=== PATIENT | male | born 1955 | race Hispanic/Latino ===

== ENCOUNTER 2019-05-13 13:26 | Outpatient (CLI) | payer MEDICARE, MEDICAID ==
--- NOTE | 2019-05-13 14:49 | ULT ---
UPPER EXTREMITY VASCULAR MAPPING: HISTORY: End stage renal disease. Evaluate vascular structures of the upper extremities prior to dialysis acce ss surgery. TECHNIQUE: Multiplanar wood-scale sonographic imaging of the vascular structures of the bilateral upper extremit ies obtained with color-flow and spectral analysis as detailed above. FINDINGS: Bilateral internal jugular veins, subclavian veins and axillary veins are patent. The basilic vein an d cephalic vein is patent bilaterally as is the radial and ulnar vein. VESSEL DIAMETER (mm) Right brachial artery 4.7 Right radial artery 2.7 Right ulnar artery 2.0 Left brachial artery 5.2 Left radial artery 3.0 Left ulnar artery 1.6 RIGHT CEPHALIC VEIN BASILIC VEIN Above elbow proximal 1.6 3.0 Above elbow mid 1.3 3.4 Above elbow distal 1.0 3.5 At elbow 2.4 3.6 Below elbow proximal 0.7 1.6 Below elbow mid 0.9 1.5 Below elbow distal 1.8 1.6 LEFT CEPHALIC VEIN BASILIC VEIN Above elbow proximal 2.4 6.2 Above elbow mid 2.0 2.9 Above elbow distal 2.1 3.0 At elbow 2.9 4.3 Below elbow proximal 2.7 1.5 Below elbow mid 1.8 0.9 Below elbow distal 1.3 1.1 IMPRESSION: Upper extremity vascular mapping as detailed above. POS: [facility]
== END 2019-05-13 13:27 | disposition home or self-care (01) ==
LOC: BICULT 13:26
PROVIDERS: ATTEND Surgery
DX: Z99.2 Dependence on renal dialysis (principal)
CPT/HCPCS: 93970; G0365

== ENCOUNTER 2019-05-16 13:36 | Day surgery (SDC) | payer MEDICARE, MEDICAID ==
[2019-05-15 12:08] VITALS: BMI 26.4
[~2019-05-16 13:36] MED LIST: EPINEPHrine 0.3 MG, Dextrose 50% 3 ML in Ophthalmic Irrigation Solution 500 ML IVP SCH
[2019-05-16] MEDS ORDERED: Cyclopentolate 1% Opth Drop 2 ML BOT ONE (14:31)
[2019-05-16] MEDS ORDERED: Phenylephrine 2.5% Ophth Soln 5 ML BOT ONE (14:31)
[2019-05-16] MEDS ORDERED: Fentanyl 100 MCG/2 ML VIAL ONE (16:35)
[2019-05-16] MEDS ORDERED: Midazolam HCl 2 mg/2 ml Vial ONE (16:35)
[2019-05-16] MEDS ORDERED: Heparin 10,000 UNITS/ 10 ML VIAL ONE (17:45)
--- NOTE | 2019-05-16 18:26 | OP ---
DATE OF PROCEDURE: 05/16/2019 PRINCIPAL PREOPERATIVE DIAGNOSES: 1. Vitreous hemorrhage, left eye. 2. Proliferative diabetic retinopathy, left eye. ESTIMATED BLOOD LOSS: None. SPECIMENS REMOVED: None. COMPLICATIONS: None. ANESTHESIA: MAC with retrobulbar block. SUMMARY OF OPERATION: The patient was identified in preop holding area, where the correct eye being the left eye was marked for surgery. The patient was taken to the operating room, where MAC anesthesia was induced. A retrobulbar block was administered to the left eye. The block consisted of 1:1 ratio of 4% lidocaine and 0.75% Marcaine. A total of 5 mL was administered. The left eye was then prepped and draped in usual sterile ophthalmic fashion for surgery. A wire lid speculum was placed. A standard 25-gauge pars plana vitrectomy platform was fashioned with trocars placed approximately 4 mm from the limbus. The infusion was noted to be within the vitreous cavity prior to being turned on to infusion pressure of 30 mmHg. The light pipe Micro vitrector introduced into the eye under visualization of BIOM viewing system. A moderate vitreous hemorrhage was noted, obscuring view of the macula as well as an inferior fundus. A careful core and peripheral shave vitrectomy were performed, which allowed for improved clearance of the vitreous hemorrhage and improved it view of the retina. Following complete clearance of the vitreous hemorrhage, the endolaser was used by panretinal photocoagulation posterior to the preexisting laser. The cannulas were sequentially removed and all sclerotomies were noted to be watertight. The wire lid speculum was removed followed by application of TobraDex ophthalmic ointment and light patch and shield. The patient tolerated the procedure well and was taken to outpatient recovery in good condition. Job ID: [id number]
== END 2019-05-16 18:10 | disposition home or self-care (01) ==
LOC: SDC 13:36
PROVIDERS: ATTEND Ophthalmology Retina Specialist
PROC: 08953ZZ Drainage of Left Vitreous, Percutaneous Approach (ICD-10-PCS; principal; 2019-05-16)
DX: H43.12 Vitreous hemorrhage, left eye (principal); E10.3592 Type 1 diabetes mellitus with proliferative diabetic retinopathy without macular edema, left eye; I12.9 Hypertensive chronic kidney disease with stage 1 through stage 4 chronic kidney disease, or unspecified chronic kidney disease; E10.22 Type 1 diabetes mellitus with diabetic chronic kidney disease; E78.5 Hyperlipidemia, unspecified; N18.9 Chronic kidney disease, unspecified
CPT/HCPCS: 36416; J0171; J1644; J2250; J3010

== ENCOUNTER 2024-07-29 13:00 | Emergency (ER) | payer MEDICARE ==
[2024-07-29 15:04] LABS: #Basophils 0.09 10x3/uL (0.0-0.2); %Basophils 1.2 % (0.0-1.0); %Eosinophils 0.6 % (0.0-10.0); %Lymphocytes 11.8 % (21.0-51.0); %Monocytes 15.3 % (0.0-10.0); %Neutrophils 70.7 % (42.0-75.0); Hemoglobin 12.6 g/dL (14.0-18.0); Mean Corpuscular HGB CONC 32.3 g/dL (32.0-36.0); Mean Corpuscular Hemoglobin 30.1 pg (27.0-31.0); Mean Corpuscular Volume 93.1 fL (78.0-98.0); Mean Platelet Volume 11.5 fL (7.4-10.4); Platelet Count 157 10x3/uL (130-400); RBC Distribution Width 17.1 % (11.5-14.5); Red Blood Cell (RBC) Count 4.19 mill/uL (4.70-6.10)
[2024-07-29 15:25] LABS: Amphetamine Not Detected (NotDetected); Barbiturates Screen Not Detected (NotDetected); Benzodiazepine Screen Not Detected (NotDetected); Cocaine Metabolite Screen Not Detected (NotDetected); Methadone Not Detected (NotDetected); Methamphetamine Not Detected (NotDetected); Opiate Screen Not Detected (NotDetected); Oxycodone Screen Not Detected (NotDetected); Phencyclidine (PCP) Not Detected (NotDetected); THC/Cannabinoid Screen Not Detected (NotDetected); Tricyclic Screen Not Detected (NotDetected)
[2024-07-29 15:29] LABS: ALT (SGPT) 64 U/L (8-55); AST (SGOT) 78 U/L (5-34); Albumin 3.2 g/dL (3.4-4.8); Alkaline Phosphatase 101 U/L (40-110); Anion Gap 17 mmol/L (10-20); BUN (Urea Nitrogen) 84 mg/dL (8.4-25.7); Bilirubin, Total 1.4 mg/dL (0.2-1.2); CK (CPK) 346 U/L (30-200); Calc. Creatinine Clearance 0 mL/min (70-130); Calcium 9.5 mg/dL (7.8-10.44); Carbon Dioxide 25 mmol/L (23-31); Chloride 102 mmol/L (98-107); Estimated GFR 9; Globulin 3.7 g/dL (2.4-3.5); Glucose 210 mg/dL (80-115); Magnesium 2.2 mg/dL (1.6-2.6); Potassium 3.3 mmol/L (3.5-5.1); Protein, Total 6.9 g/dL (5.8-8.1); Sodium 141 mmol/L (136-145)
[2024-07-29 15:52] LABS: Bilirubin Negative (Negative); Blood, Urine 1+ (Negative); CAUTI Indications for Culture Fever or rigors; Clarity Clear (Clear); Glucose, Urine (Dipstick) 300 mg/dL (Negative); Ketone, Urine Negative (Negative); Leukocyte 250 Leu/uL (Negative); Nitrite Negative (Negative); Protein, Urine (Dipstick) 100 mg/dL (Neg-Trace); Specific Gravity, Urine 1.018 (1.002-1.036); Squamous Epithelial None Seen HPF (0-3); Urobilinogen Normal mg/dL (Less than 2); WBC/HPF 21-50 HPF (0-3); Yeast-Budding Rare HPF (None Seen)
[2024-07-29 15:59] LABS: Bacteria/HPF 1+ HPF (None Seen)
[2024-07-29 16:01] LABS: Urine Culture Reflex Yes Yes
[2024-07-29] MEDS ORDERED: cefTRIAXone (ROCEPHIN) 2 GM VIAL ONE (16:20)
[2024-07-29] MEDS ORDERED: Sodium Chloride 0.9% 100 ML ONE (16:20)
[2024-07-29 16:33] LABS: INR-International Normal Ratio 1.6; PTT 38.3 sec (22.9-36.1)
[2024-07-30 11:17] LABS: HBSAB Concentration 43.64 mIU/mL; HBsAg Index 0.28 S/CO (0-0.99); Hep B Core Total Ab NONREACTIVE (NonReactive); Hep B Core Total Index 0.16 S/CO (0-0.79); Hep B Surf AB REACTIVE (NonReactive); Hep B Surf Ag NONREACTIVE S/CO (NonReactive); Hep C IgG Ab NONREACTIVE S/CO (NonReactive); Hep C Index 0.08 S/CO (0-0.79)
== END 2024-07-29 20:22 ==
LOC: ERS 13:00
DX: N39.0 Urinary tract infection, site not specified (principal); E11.22 Type 2 diabetes mellitus with diabetic chronic kidney disease; N18.6 End stage renal disease; R53.1 Weakness; I50.9 Heart failure, unspecified; Z99.2 Dependence on renal dialysis; Z95.0 Presence of cardiac pacemaker
CPT/HCPCS: 70450; 71045; 80306; 81001; 82550; 83605; 83735; 85610; 85730; 86704; 86706; 86803; 87040; 87086; 87340; 93005; 94760; J0696; 36415; 80053; 84443; 85025